=== PATIENT | female | born 1960 | race Caucasian/White ===

== ENCOUNTER → 2021-10-03 | Day surgery (SDC) | payer OTHER ==
[~2021-10-03] VITALS: Ht 170.2 cm; Wt 52.6 kg
[~2021-10-03] MED LIST: LIPITOR 10MG TA10 MG PO
[2021-10-03 08:33] LABS: HCT 40.6 % (37.0-47.0); HGB 13.7 g/dl (12.5-16.0); MCH 32.1 pg (25.0-31.0); MCHC 33.7 g/dL (32.0-36.0); MCV 95.1 fL (78.0-100.0); MPV 10.6 fL (6.0-9.5); RBC 4.27 M/uL (4.20-5.40); RDW 12.4 % (11.5-14.0)
[2021-10-03 10:28] LABS: ALBUMIN 4.5 g/dL (3.4-5.0); BILIRUBIN - TOTAL 0.7 mg/dL (0.2-1.0); CREATININE 0.75 mg/dL (0.51-0.95); GLOBULIN (CALCULATION) 3.3 g/dL; POTASSIUM 3.4 mmol/L (3.5-5.1); TOTAL PROTEIN 7.8 g/dL (6.4-8.2)
[2021-10-03 16:42] LABS: CHOLESTEROL 188 mg/dL (<200); HDL 130 mg/dL (40-60); LDL - DIRECT 55 mg/dL (<100); TRIGLYCERIDES 25 mg/dL (<150)
== END | disposition home or self-care (01) ==
LOC: FAS 07:48
PROVIDERS: Surgery
DX: Z12.11 Encounter for screening for malignant neoplasm of colon (principal); K63.89 Other specified diseases of intestine; Z86.010 Personal history of colon polyps; Z87.891 Personal history of nicotine dependence
CPT/HCPCS: 36415; 80053; 80061; J1610; J2704; J7120

== ENCOUNTER 2021-10-10 11:59 | Emergency (ER) | payer OTHER ==
[2021-10-10] MEDS ORDERED: NAPROXEN500 MG PO (13:42)
== END 2021-10-10 15:26 | disposition home or self-care (01) ==
LOC: FER 11:59
DX: M70.812 Other soft tissue disorders related to use, overuse and pressure, left shoulder (principal); E78.5 Hyperlipidemia, unspecified; F10.20 Alcohol dependence, uncomplicated; Z87.891 Personal history of nicotine dependence; Z79.899 Other long term (current) drug therapy
CPT/HCPCS: 73030; 96372; J1100; J1885